=== PATIENT | female | born 1990 | race Caucasian/White ===

== ENCOUNTER 2018-04-14 10:31 | Inpatient (IN) | payer OTHER ==
[2018-04-14] MEDS ORDERED: Lidocaine 1% 50 ML MDV INJECT PRN (11:09)
[2018-04-14] MEDS ORDERED: Nalbuphine 20 MG/ML 1 ML Syringe IVPUSH PRN (11:09)
[2018-04-14] MEDS ORDERED: Sodium Chloride 0.9% 10 ML Syringe FLUSH PRN (11:09)
[2018-04-14] MEDS ORDERED: Oxytocin/Lactated Ringers 10 UNIT/1,000 ML BAG IV SCH ×2 (11:15)
[2018-04-14] MEDS: Lactated Ringers 1,000 ML IV SCH ×4 (11:25→21:42)
--- NOTE | 2018-04-14 11:47 | PCM.LDHP ---
L&D History of Present Illness - General Date of Service: 04/14/18 Admit Problem/Dx: Patient Status Order with Admit Dx/Problem 04/14/18 11:09 Patient Status [ADT] Routine Admission Diagnosis/Problem Admission Diagnosis/Problem Source of Information: Patient History Limitations: Reports: No Limitations - History of Present Illness Introduction:: Patient is a 27 y/o at 38 3/7 wks who is on L&D for IOL for gestational HTN. Has had 2 mild range BP's in clinic today. Had one prior elevated in clinic about 2 weeks ago. Doing well. No signs/symptoms of preeclampsia. 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 Para: 0 - Past Surgical History HEENT Surgical History: Reports: Oral Surgery Social & Family History - Family History Family Medical History: Noncontributory Cardiac: Reports: Hypertension Endocrine/Metabolic: Reports: Diabetes, type II Oncologic: Reports: Breast - Tobacco Use Smoking Status *Q: Never Smoker Second Hand Smoke Exposure: No - Alcohol Use Alcohol Use History: No - Recreational Drug Use Recreational Drug Use: No H&P Review of Systems - Review of Systems: Review Of Systems: See Below General: Reports: No Symptoms Pulmonary: Reports: No Symptoms Cardiovascular: Reports: No Symptoms Gastrointestinal: Reports: No Symptoms Genitourinary: Reports: No Symptoms Musculoskeletal: Reports: No Symptoms Psychiatric: Reports: No Symptoms Neurological: Reports: No Symptoms L&D Exam - Exam Exam: See Below - Vital Signs Vital Signs: Last Vital Signs Temp 37.0 C 04/14/18 11:09 Pulse 100 04/14/18 11:01 Resp 16 04/14/18 11:09 BP 138/93 H 04/14/18 11:09 Pulse Ox Weight: 94.982 kg - OB Specific Contraction Frequency (min): 3-4 Contraction Intensity: Mild Movement: Active Heart Tones: Present Heart Tones per Min: 140 Heart Rate (FHR) Variability: Moderate (6-25 bmp) Presentation: Vertex - Poe Score Poe Score Cervix Position: Posterior Poe Score Consistency: Soft Poe Score Effacement: 51-70% Poe Score Dilation: 1-2 cm Poe Score Infant's Station: -2 Poe Score Total: 6 - Exam General: Alert, Oriented, Cooperative Lungs: Clear to Auscultation, Normal Respiratory Effort Cardiovascular: Regular Rate, Regular Rhythm GI/Abdominal Exam: Soft, Non-Tender Genitourinary: Normal external exam Extremities: Normal Inspection Skin: Warm, Dry, Intact - Patient Data Result Diagrams: 04/14/18 11:41 04/14/18 11:53 - Problem List (1) 38 weeks gestation of SNOMED Code(s): 65712408 ICD Code: Z3A.38 - 38 WEEKS GESTATION OF Status: Acute Current Visit: Yes (2) Gestational hypertension SNOMED Code(s): 128246737, 111338546 ICD Code: O13.9 - GESTATIONAL HTN W/O SIGNIFICANT PROTEINURIA, UNSP TRIMESTER Status: Acute Current Visit: Yes Qualifiers: Trimester: third trimester Qualified Code(s): O13.3 - Gestational [ -induced] hypertension without significant proteinuria, third trimester Problem List Initiated/Reviewed/Updated: Yes Orders Last 24hrs: Active Orders 24 hr Category Date Time Status Patient Status [ADT] Routine ADT 04/14/18 11:09 Active Activity as Tolerated [RC] PFP Care 04/14/18 11:09 Active Communication Order [RC] ASDIRECTED Care 04/14/18 11:09 Active Heart Tones [RC] ASDIRECTED Care 04/14/18 11:09 Active Notify Provider [RC] PFP Care 04/14/18 11:09 Active Notify Provider [RC] PRN Care 04/14/18 11:09 Active Peripheral IV Care [RC] Q2HR Care 04/14/18 11:09 Active Vital Signs [RC] PER UNIT ROUTINE Care 04/14/18 11:09 Active Regular Diet [DIET] Diet 04/14/18 Lunch Active CBC WITH AUTO DIFF [HEME] Routine Lab 04/14/18 11:41 Received RAPID PLASMA REAGIN,RPR [CHEM] Routine Lab 04/14/18 11:09 Ordered Lactated Ringers [Ringers, Lactated] 1,000 ml Med 04/14/18 11:15 Active IV ASDIRECTED Lidocaine 1% [Xylocaine 1%] Med 04/14/18 11:09 Active 50 ml INJECT ONETIME PRN Nalbuphine [Nubain] Med 04/14/18 11:09 Active 10 mg IVPUSH Q2H PRN Oxytocin/Lactated Ringers [Pitocin in LR 10 Units/1,000 Med 04/14/18 11:15 Active ML] 10 unit in 1,000 ml IV .CONTINUOUS Oxytocin/Lactated Ringers [Pitocin in LR 10 Units/1,000 Med 04/14/18 11:15 Active ML] 10 unit in 1,000 ml IV TITRATE Sodium Chloride 0.9% [Saline Flush] Med 04/14/18 11:09 Active 10 ml FLUSH ASDIRECTED PRN Electronic Heart Tones Ext w TOCO [WOMSER] Oth 04/14/18 11:09 Ordered Routine Electronic Heart Tones Internal [WOMSER] Per Unit Ot 04/14/18 11:09 Ordered Routine Peripheral IV Insertion Adult [OM.PC] Routine Ot 04/14/18 11:09 Ordered Resuscitation Status Routine Resus Stat 04/14/18 11:09 Ordered Medication Orders Lactated Ringer's (Ringers, Lactated) 1,000 mls @ 100 mls/hr IV ASDIRECTED AVE Oxytocin/Lactated Ringer's (Pitocin In Lr 10 Units/1,000 Ml) 10 unit in 1,000 mls @ 12 mls/hr IV TITRATE AVE; Protocol Oxytocin/Lactated Ringer's (Pitocin In Lr 10 Units/1,000 Ml) 10 unit in 1,000 mls @ 500 mls/hr IV .CONTINUOUS AVE Lidocaine HCl (Xylocaine 1%) 50 ml INJECT ONETIME PRN PRN Reason: Breakthrough Pain Nalbuphine HCl (Nubain) 10 mg IVPUSH Q2H PRN PRN Reason: pain Sodium Chloride (Saline Flush) 10 ml FLUSH ASDIRECTED PRN PRN Reason: Keep Vein Open Assessment/Plan Comment:: 27 y/o at 38 3/7 wks who presents for IOL for gestational HTN * Labs on admission * GBS negative, no need for antibiotics * Plan pitocin and fine bulb for IOL. AROM when able * Pain management per patient preference * Anticipate
--- NOTE | 2018-04-14 16:43 | PCM.PNLD ---
Labor Progress Note - VS & Meds Vital Signs: Last Vital Signs Temp 37.0 C 04/14/18 11:09 Pulse 107 H 04/14/18 14:19 Resp 16 04/14/18 11:09 BP 144/89 H 04/14/18 14:19 Pulse Ox Active Medications: Current Medications Lactated Ringer's (Ringers, Lactated) 1,000 mls @ 100 mls/hr IV ASDIRECTED AVE Last Admin: 04/14/18 11:25 Dose: 100 mls/hr Oxytocin/Lactated Ringer's (Pitocin In Lr 10 Units/1,000 Ml) 10 unit in 1,000 mls @ 12 mls/hr IV TITRATE AVE; Protocol Last Titration: 04/14/18 14:20 Dose: 10 munits/min, 60 mls/hr Oxytocin/Lactated Ringer's (Pitocin In Lr 10 Units/1,000 Ml) 10 unit in 1,000 mls @ 500 mls/hr IV .CONTINUOUS AVE Lidocaine HCl (Xylocaine 1%) 50 ml INJECT ONETIME PRN PRN Reason: Breakthrough Pain Nalbuphine HCl (Nubain) 10 mg IVPUSH Q2H PRN PRN Reason: pain Sodium Chloride (Saline Flush) 10 ml FLUSH ASDIRECTED PRN PRN Reason: Keep Vein Open - Uterine Contractions Uterine Monitoring Mode: External [place] Contraction Frequency (min): q3 Contraction Intensity: Mild Uterine Resting Tone: Soft - Monitoring Monitor Mode: External Ultrasound Heart Rate (FHR) Baseline: 135 Heart Rate (FHR) Variability: Moderate (6-25 bmp) Accelerations: Present, 15x15 Decelerations: None Strip Review: Category I - Vaginal Exam Dilation (cm): 4 Effacement (Percent): 75 Station: -2 Cervical Position: Posterior - Labor Progress (Free Text) Labor Progress: Doing well. Contractions mild. Pitocin at 12. AROM performed with release of clear fluid. Continue present management.
[2018-04-14] MEDS ORDERED: Ondansetron 4 MG/2 ML SDV IVPUSH PRN (17:56)
[2018-04-14] MEDS ORDERED: fentaNYL 100 MCG/2 ML SDV EPIDUR PRN (17:56)
[2018-04-14] MEDS ORDERED: diphenhydrAMINE 50 MG/ML SDV IVPUSH PRN (17:56)
[2018-04-14] MEDS ORDERED: ePHEDrine 50 MG/ML SDV IVPUSH PRN (17:56)
[2018-04-14] MEDS ORDERED: Bupivacaine/fentaNYL/NS 100 ML Bag EPIDUR SCH (18:00)
--- NOTE | 2018-04-14 18:33 | PCM.PREANE ---
Preanesthetic Assessment - Anesthesia/Transfusion/Family Hx Anesthesia History: Prior Anesthesia Without Reaction Transfusion History: No Prior Transfusion(s) - Review of Systems General: No Symptoms Pulmonary: No Symptoms Cardiovascular: No Symptoms Gastrointestinal: No Symptoms Neurological: No Symptoms Other: Reports: None - Physical Assessment Pulse: 107 Respiratory Rate: 16 Blood Pressure: 144/89 Vital Signs: Last Vital Signs Temp 37.0 C 04/14/18 11:09 Pulse 107 H 04/14/18 14:19 Resp 16 04/14/18 11:09 BP 144/89 H 04/14/18 14:19 Pulse Ox Height: 1.6 m Weight: 94.982 kg ASA Class: 2 Mental Status: Alert & Oriented x3 Dentition: Reports: Normal Dentition Thyro-Mental Finger Breadths: 3 Mouth Opening Finger Breadths: 3 ROM/Head Extension: Full Lungs: Clear to Auscultation, Normal Respiratory Effort Cardiovascular: Regular Rate, Regular Rhythm - Lab Values: Laboratory Last Values WBC 8.80 K/mm3 (3.98-10.04) 04/14/18 11:41 RBC 4.59 M/mm3 (3.98-5.22) 04/14/18 11:41 Hgb 13.9 gm/L (11.2-15.7) 04/14/18 11:41 Hct 40.5 % (34.1-44.9) 04/14/18 11:41 MCV 88.2 fl (79.4-94.8) 04/14/18 11:41 MCH 30.3 pg (25.6-32.2) 04/14/18 11:41 MCHC 34.3 g/dl (32.2-35.5) 04/14/18 11:41 RDW Std Deviation 41.9 fL (36.4-46.3) 04/14/18 11:41 Plt Count 254 K/mm3 (182-369) 04/14/18 11:41 MPV 11.4 fl (9.4-12.3) 04/14/18 11:41 Neut % (Auto) 76.2 % (34.0-71.1) H 04/14/18 11:41 Lymph % (Auto) 13.4 % (19.3-51.7) L 04/14/18 11:41 [place] % (Auto) 8.6 % (4.7-12.5) 04/14/18 11:41 Eos % (Auto) 0.5 (0.7-5.8) L 04/14/18 11:41 Baso % (Auto) 0.3 % (0.1-1.2) 04/14/18 11:41 Neut # (Auto) 6.70 K/mm3 (1.56-6.13) H 04/14/18 11:41 Lymph # (Auto) 1.18 K/mm3 (1.18-3.74) 04/14/18 11:41 [place] # (Auto) 0.76 K/mm3 (0.24-0.36) H 04/14/18 11:41 Eos # (Auto) 0.04 K/mm3 (0.04-0.36) 04/14/18 11:41 Baso # (Auto) 0.03 K/mm3 (0.01-0.08) 04/14/18 11:41 Creatinine 0.7 mg/dL (0.55-1.02) 04/14/18 11:53 Est Cr Clr Drug Dosing 100.74 mL/min 04/14/18 11:53 Estimated GFR (MDRD) > 60 mL/min (>60) 04/14/18 11:53 AST 20 U/L (15-37) 04/14/18 11:53 ALT 19 U/L (14-59) 04/14/18 11:53 Urine Color Yellow (Yellow) 04/14/18 12:45 Urine Appearance Clear (Clear) 04/14/18 12:45 Urine pH 7.0 (5.0-8.0) 04/14/18 12:45 Ur Specific [place] 1.015 (1.005-1.030) 04/14/18 12:45 Urine Protein Negative (Negative) 04/14/18 12:45 Urine Glucose (UA) Negative (Negative) 04/14/18 12:45 Urine Ketones Negative (Negative) 04/14/18 12:45 Urine Occult Blood Negative (Negative) 04/14/18 12:45 Urine Nitrite Negative (Negative) 04/14/18 12:45 Urine Bilirubin Negative (Negative) 04/14/18 12:45 Urine Urobilinogen 0.2 (0.2-1.0) 04/14/18 12:45 Ur Leukocyte Esterase Trace (Negative) H 04/14/18 12:45 RPR Non-reactive (NONREACTIVE) 04/14/18 11:09 - Allergies Allergies/Adverse Reactions: Allergies Allergy/AdvReac Type Severity Reaction Status Date / Time No Known Allergies Allergy Verified 04/14/18 10:58 - Acknowledgements Anesthesia Type Planned: Epidural Pt an Appropriate Candidate for the Planned Anesthesia: Yes Alternatives and Risks of Anesthesia Discussed w Pt/Guardian: Yes Pt/Guardian Understands and Agrees with Anesthesia Plan: Yes PreAnesthesia Questionnaire - Past Surgical History HEENT Surgical History: Reports: Oral Surgery - SUBSTANCE USE Smoking Status *Q: Never Smoker Second Hand Smoke Exposure: No Recreational Drug Use History: No - CURRENT (IN HOUSE) MEDS Current Meds: Current Medications Diphenhydramine HCl (Benadryl) 25 mg IVPUSH Q6H PRN PRN Reason: Pruritis Ephedrine Sulfate (Ephedrine Sulfate) 5 mg IVPUSH ASDIRECTED PRN PRN Reason: Hypotension Fentanyl (Sublimaze) 100 mcg EPIDUR ONETIME PRN PRN Reason: Pain Last Admin: 04/14/18 18:06 Dose: 100 mcg Fentanyl/Bupivacaine HCl (Fentanyl/Bupivacaine/Ns 2 Mcg-0.125% 100 Ml) [address] Last Admin: 04/14/18 18:06 Dose: 100 ml Lactated Ringer's (Ringers, Lactated) 1,000 mls @ 100 mls/hr IV ASDIRECTED AVE Last Admin: 04/14/18 18:22 Dose: 500 mls/hr Oxytocin/Lactated Ringer's (Pitocin In Lr 10 Units/1,000 Ml) 10 unit in 1,000 mls @ 12 mls/hr IV TITRATE AVE; Protocol Last Titration: 04/14/18 16:56 Dose: 10 munits/min, 60 mls/hr Oxytocin/Lactated Ringer's (Pitocin In Lr 10 Units/1,000 Ml) 10 unit in 1,000 mls @ 500 mls/hr IV .CONTINUOUS AVE Lidocaine HCl (Xylocaine 1%) 50 ml INJECT ONETIME PRN PRN Reason: Breakthrough Pain Nalbuphine HCl (Nubain) 10 mg IVPUSH Q2H PRN PRN Reason: pain Ondansetron HCl (Zofran) 4 mg IVPUSH ONETIME PRN PRN Reason: Nausea/Vomiting Sodium Chloride (Saline Flush) 10 ml FLUSH ASDIRECTED PRN PRN Reason: Keep Vein Open
[2018-04-14] MEDS ORDERED: Lidocaine 1.5% with EPINEPHrine 1:200,000 5 ML Amp ONE (22:00)
[2018-04-14] MEDS ORDERED: Bupivacaine 0.25% 10 ML SDV ONE (22:00)
[2018-04-14] MEDS ORDERED: Misoprostol 200 MCG Tab ONE ×2 (22:08→22:10)
[2018-04-14] MEDS ORDERED: Misoprostol 100 MCG Tab PO ONE (22:14)
--- NOTE | 2018-04-14 22:34 | PCM.DEL ---
L & D Note - General Info Date of Service: 04/14/18 - Delivery Note Labor: Induced by ARM, Induced by Oxytocin Cervical Ripening Method: Balloon Device Delivery Outcome: Livebirth Infant Delivery Method: Spontaneous Vaginal Delivery-Single Infant Delivery Mode: Spontaneous Presentation: Right Occiput Anterior (ORACIO) Nuchal Cord: None Anesthesia Type: Epidural Amniotic Fluid Description: Clear Episiotomy Type: None Laceration: 2nd Degree, Vaginal, Other (periclitoral) Suture type: Vicryl Suture size: 2-0 Placenta: Intact, Spontaneous Cord: 3 Vessels Estimated Blood Loss: 450 : Bulb Syringe, Stimulated, Warmed, [place] Used, Warmer Used Delivery Comments (Free Text/Narrative):: Patient found to be complete and began pushing. With maternal pushing effort head delivered from an ORACIO presentation. No nuchal cord present. With gentle downward traction the shoulders and body delivered. placed on maternal abdomen. Cord clamped and cut. Cord blood obtained. Placenta allowed time to separate and expelled intact. Inspection of the perineum showed a periclitoral tear and also a small, 2nd degree vaginal laceration. These were both repaired with running sutures of 2-0 vicryl - General Info Date of Service: 04/14/18 - Patient Data Vitals - Most Recent: Last Vital Signs Temp 37.0 C 04/14/18 11:09 Pulse 107 H 04/14/18 18:33 Resp 16 04/14/18 18:33 BP 144/89 H 04/14/18 18:33 Pulse Ox Weight - Most Recent: 94.982 kg I&O - Last 24 Hours: Intake & Output 04/14/18 04/14/18 04/14/18 06:59 14:59 22:59 Intake Total 380 Balance 380 Lab Results Last 24 Hours: Laboratory Results - last 24 hr 04/14/18 04/14/18 04/14/18 Range/Units 11:09 11:41 11:53 WBC 8.80 (3.98-10.04) K/mm3 RBC 4.59 (3.98-5.22) M/mm3 Hgb 13.9 (11.2-15.7) gm/L Hct 40.5 (34.1-44.9) % MCV 88.2 (79.4-94.8) fl MCH 30.3 (25.6-32.2) pg MCHC 34.3 (32.2-35.5) g/dl RDW Std Deviation 41.9 (36.4-46.3) fL Plt Count 254 (182-369) K/mm3 MPV 11.4 (9.4-12.3) fl Neut % (Auto) 76.2 H (34.0-71.1) % Lymph % (Auto) 13.4 L (19.3-51.7) % [place] % (Auto) 8.6 (4.7-12.5) % Eos % (Auto) 0.5 L (0.7-5.8) Baso % (Auto) 0.3 (0.1-1.2) % Neut # (Auto) 6.70 H (1.56-6.13) K/mm3 Lymph # (Auto) 1.18 (1.18-3.74) K/mm3 [place] # (Auto) 0.76 H (0.24-0.36) K/mm3 Eos # (Auto) 0.04 (0.04-0.36) K/mm3 Baso # (Auto) 0.03 (0.01-0.08) K/mm3 Creatinine 0.7 (0.55-1.02) mg/dL Est Cr Clr Drug Dosing 100.74 mL/min Estimated GFR (MDRD) > 60 (>60) mL/min AST 20 (15-37) U/L ALT 19 (14-59) U/L Urine Color (Yellow) Urine Appearance (Clear) Urine pH (5.0-8.0) Ur Specific [place] (1.005-1.030) Urine Protein (Negative) Urine Glucose (UA) (Negative) Urine Ketones (Negative) Urine Occult Blood (Negative) Urine Nitrite (Negative) Urine Bilirubin (Negative) Urine Urobilinogen (0.2-1.0) Ur Leukocyte Esterase (Negative) RPR Non-reactive (NONREACTIVE) 04/14/18 Range/Units 12:45 WBC (3.98-10.04) K/mm3 RBC (3.98-5.22) M/mm3 Hgb (11.2-15.7) gm/L Hct (34.1-44.9) % MCV (79.4-94.8) fl MCH (25.6-32.2) pg MCHC (32.2-35.5) g/dl RDW Std Deviation (36.4-46.3) fL Plt Count (182-369) K/mm3 MPV (9.4-12.3) fl Neut % (Auto) (34.0-71.1) % Lymph % (Auto) (19.3-51.7) % [place] % (Auto) (4.7-12.5) % Eos % (Auto) (0.7-5.8) Baso % (Auto) (0.1-1.2) % Neut # (Auto) (1.56-6.13) K/mm3 Lymph # (Auto) (1.18-3.74) K/mm3 [place] # (Auto) (0.24-0.36) K/mm3 Eos # (Auto) (0.04-0.36) K/mm3 Baso # (Auto) (0.01-0.08) K/mm3 Creatinine (0.55-1.02) mg/dL Est Cr Clr Drug Dosing mL/min Estimated GFR (MDRD) (>60) mL/min AST (15-37) U/L ALT (14-59) U/L Urine Color Yellow (Yellow) Urine Appearance Clear (Clear) Urine pH 7.0 (5.0-8.0) Ur Specific [place] 1.015 (1.005-1.030) Urine Protein Negative (Negative) Urine Glucose (UA) Negative (Negative) Urine Ketones Negative (Negative) Urine Occult Blood Negative (Negative) Urine Nitrite Negative (Negative) Urine Bilirubin Negative (Negative) Urine Urobilinogen 0.2 (0.2-1.0) Ur Leukocyte Esterase Trace H (Negative) RPR (NONREACTIVE) Med Orders - Current: Current Medications Diphenhydramine HCl (Benadryl) 25 mg IVPUSH Q6H PRN PRN Reason: Pruritis Ephedrine Sulfate (Ephedrine Sulfate) 5 mg IVPUSH ASDIRECTED PRN PRN Reason: Hypotension Fentanyl (Sublimaze) 100 mcg EPIDUR ONETIME PRN PRN Reason: Pain Last Admin: 04/14/18 18:06 Dose: 100 mcg Fentanyl/Bupivacaine HCl (Fentanyl/Bupivacaine/Ns 2 Mcg-0.125% 100 Ml) [address] Last Admin: 04/14/18 18:06 Dose: 100 ml Lactated Ringer's (Ringers, Lactated) 1,000 mls @ 100 mls/hr IV ASDIRECTED AVE Last Admin: 04/14/18 21:42 Dose: 125 mls/hr Oxytocin/Lactated Ringer's (Pitocin In Lr 10 Units/1,000 Ml) 10 unit in 1,000 mls @ 12 mls/hr IV TITRATE AVE; Protocol Last Titration: 04/14/18 19:30 Dose: 12 munits/min, 72 mls/hr Oxytocin/Lactated Ringer's (Pitocin In Lr 10 Units/1,000 Ml) 10 unit in 1,000 mls @ 500 mls/hr IV .CONTINUOUS AVE Lidocaine HCl (Xylocaine 1%) 50 ml INJECT ONETIME PRN PRN Reason: Breakthrough Pain Nalbuphine HCl (Nubain) 10 mg IVPUSH Q2H PRN PRN Reason: pain Ondansetron HCl (Zofran) 4 mg IVPUSH ONETIME PRN PRN Reason: Nausea/Vomiting Sodium Chloride (Saline Flush) 10 ml FLUSH ASDIRECTED PRN PRN Reason: Keep Vein Open Discontinued Medications Misoprostol (Cytotec) Confirm Administered Dose 200 mcg .ROUTE .STK-MED ONE Stop: 04/14/18 22:09 Last Admin: 04/14/18 22:09 Dose: 200 mcg Misoprostol (Cytotec) Confirm Administered Dose 400 mcg .ROUTE .STK-MED ONE Stop: 04/14/18 22:11 Last Admin: 04/14/18 22:09 Dose: 400 mcg Misoprostol (Cytotec) 600 mcg PO ONETIME ONE Stop: 04/14/18 22:15 Last Admin: 04/14/18 22:24 Dose: Not Given - Problem List & Annotations (1) 38 weeks gestation of SNOMED Code(s): 86531068 Code(s): Z3A.38 - 38 WEEKS GESTATION OF Status: Acute Current Visit: Yes (2) Gestational hypertension SNOMED Code(s): 821920957, 409096784 Code(s): O13.9 - GESTATIONAL HTN W/O SIGNIFICANT PROTEINURIA, UNSP TRIMESTER Status: Acute Current Visit: Yes Qualifiers: Trimester: third trimester Qualified Code(s): O13.3 - Gestational [ -induced] hypertension without significant proteinuria, third trimester (3) Vaginal delivery SNOMED Code(s): 447256510 Code(s): O80 - ENCOUNTER FOR FULL-TERM UNCOMPLICATED DELIVERY Status: Acute Current Visit: Yes - Problem List Review Problem List Initiated/Reviewed/Updated: Yes - My Orders Last 24 Hours: My Active Orders 04/14/18 11:09 Patient Status [ADT] Routine Activity as Tolerated [RC] PFP Communication Order [RC] ASDIRECTED Notify Provider [RC] PFP Notify Provider [RC] PRN Peripheral IV Care [RC] Q2HR Vital Signs [RC] PER UNIT ROUTINE Lidocaine 1% [Xylocaine 1%] 50 ml INJECT ONETIME PRN Nalbuphine [Nubain] 10 mg IVPUSH Q2H PRN Sodium Chloride 0.9% [Saline Flush] 10 ml FLUSH ASDIRECTED PRN Electronic Heart Tones Ext w TOCO [WOMSER] Routine Electronic Heart Tones Internal [WOMSER] Per Unit Routine Peripheral IV Insertion Adult [OM.PC] Routine Resuscitation Status Routine 04/14/18 11:15 Lactated Ringers [Ringers, Lactated] 1,000 ml IV ASDIRECTED Oxytocin/Lactated Ringers [Pitocin in LR 10 Units/1,000 ML] 10 unit in 1,000 ml IV .CONTINUOUS Oxytocin/Lactated Ringers [Pitocin in LR 10 Units/1,000 ML] 10 unit in 1,000 ml IV TITRATE 04/14/18 22:29 Patient Status Manage Transfer [TRANSFER] Routine 04/14/18 Lunch Regular Diet [DIET] - Assessment Assessment:: 27 y/o G1 now P1001 PPD#0 from at 38 3/7 wks - Plan Plan:: * Routine cares * Encourage breast feeding * Monitor BP's closely * Discharge home in 2 days
[2018-04-14] MEDS ORDERED: Acetaminophen 325 MG Tab PO PRN (22:55)
[2018-04-14] MEDS ORDERED: Benzocaine/Menthol 20%-0.5% Spray 56 GM Canister TOP PRN (22:55)
[2018-04-14] MEDS ORDERED: Witch Hazel Medicated Pads 100/Jar TOP PRN (22:55)
[2018-04-14] MEDS ORDERED: Lanolin 100% Cream 7 GM Tube TOP PRN (22:55)
[2018-04-14] MEDS: Ibuprofen 600 MG Tab PO PRN (23:46)
[2018-04-14] MEDS: Docusate Sodium 100 MG Cap PO PRN (23:46)
--- NOTE | 2018-04-15 07:27 | PCM.PNPP ---
- General Info Date of Service: 04/15/18 Functional Status: Reports: Pain Controlled, Tolerating Diet, Ambulating, Urinating - Review of Systems General: Reports: No Symptoms Pulmonary: Reports: No Symptoms Cardiovascular: Reports: No Symptoms Gastrointestinal: Reports: No Symptoms Genitourinary: Reports: No Symptoms Musculoskeletal: Reports: No Symptoms Neurological: Reports: No Symptoms - Patient Data Vital Signs - Most Recent: Last Vital Signs Temp 36.4 C 04/15/18 03:59 Pulse 92 04/15/18 03:59 Resp 14 04/15/18 03:59 BP 131/72 04/15/18 03:59 Pulse Ox 99 04/15/18 03:59 Weight - Most Recent: 94.982 kg Lab Results - Last 24 Hours: Laboratory Results - last 24 hr 04/14/18 04/14/18 04/14/18 Range/Units 11:09 11:41 11:53 WBC 8.80 (3.98-10.04) K/mm3 RBC 4.59 (3.98-5.22) M/mm3 Hgb 13.9 (11.2-15.7) gm/L Hct 40.5 (34.1-44.9) % MCV 88.2 (79.4-94.8) fl MCH 30.3 (25.6-32.2) pg MCHC 34.3 (32.2-35.5) g/dl RDW Std Deviation 41.9 (36.4-46.3) fL Plt Count 254 (182-369) K/mm3 MPV 11.4 (9.4-12.3) fl Neut % (Auto) 76.2 H (34.0-71.1) % Lymph % (Auto) 13.4 L (19.3-51.7) % [place] % (Auto) 8.6 (4.7-12.5) % Eos % (Auto) 0.5 L (0.7-5.8) Baso % (Auto) 0.3 (0.1-1.2) % Neut # (Auto) 6.70 H (1.56-6.13) K/mm3 Lymph # (Auto) 1.18 (1.18-3.74) K/mm3 [place] # (Auto) 0.76 H (0.24-0.36) K/mm3 Eos # (Auto) 0.04 (0.04-0.36) K/mm3 Baso # (Auto) 0.03 (0.01-0.08) K/mm3 Creatinine 0.7 (0.55-1.02) mg/dL Est Cr Clr Drug Dosing 100.74 mL/min Estimated GFR (MDRD) > 60 (>60) mL/min AST 20 (15-37) U/L ALT 19 (14-59) U/L Urine Color (Yellow) Urine Appearance (Clear) Urine pH (5.0-8.0) Ur Specific [place] (1.005-1.030) Urine Protein (Negative) Urine Glucose (UA) (Negative) Urine Ketones (Negative) Urine Occult Blood (Negative) Urine Nitrite (Negative) Urine Bilirubin (Negative) Urine Urobilinogen (0.2-1.0) Ur Leukocyte Esterase (Negative) RPR Non-reactive (NONREACTIVE) 04/14/18 Range/Units 12:45 WBC (3.98-10.04) K/mm3 RBC (3.98-5.22) M/mm3 Hgb (11.2-15.7) gm/L Hct (34.1-44.9) % MCV (79.4-94.8) fl MCH (25.6-32.2) pg MCHC (32.2-35.5) g/dl RDW Std Deviation (36.4-46.3) fL Plt Count (182-369) K/mm3 MPV (9.4-12.3) fl Neut % (Auto) (34.0-71.1) % Lymph % (Auto) (19.3-51.7) % [place] % (Auto) (4.7-12.5) % Eos % (Auto) (0.7-5.8) Baso % (Auto) (0.1-1.2) % Neut # (Auto) (1.56-6.13) K/mm3 Lymph # (Auto) (1.18-3.74) K/mm3 [place] # (Auto) (0.24-0.36) K/mm3 Eos # (Auto) (0.04-0.36) K/mm3 Baso # (Auto) (0.01-0.08) K/mm3 Creatinine (0.55-1.02) mg/dL Est Cr Clr Drug Dosing mL/min Estimated GFR (MDRD) (>60) mL/min AST (15-37) U/L ALT (14-59) U/L Urine Color Yellow (Yellow) Urine Appearance Clear (Clear) Urine pH 7.0 (5.0-8.0) Ur Specific Malcolm 1.015 (1.005-1.030) Urine Protein Negative (Negative) Urine Glucose (UA) Negative (Negative) Urine Ketones Negative (Negative) Urine Occult Blood Negative (Negative) Urine Nitrite Negative (Negative) Urine Bilirubin Negative (Negative) Urine Urobilinogen 0.2 (0.2-1.0) Ur Leukocyte Esterase Trace H (Negative) RPR (NONREACTIVE) Med Orders - Current: Current Medications Acetaminophen (Tylenol) 650 mg PO Q4H PRN PRN Reason: mild pain or fever Benzocaine/Menthol (Dermoplast Pain Relief [place]) 0 gm TOP ASDIRECTED PRN PRN Reason: Perineal Comfort Measure Last Admin: 04/14/18 23:46 Dose: 1 can Docusate Sodium (Colace) 100 mg PO BID PRN PRN Reason: Constipation Last Admin: 04/14/18 23:46 Dose: 100 mg Emollient Ointment (Lansinoh Hpa) 0 gm TOP ASDIRECTED PRN PRN Reason: Sore Nipples Last Admin: 04/14/18 23:45 Dose: 1 tube Ibuprofen (Motrin) 600 mg PO Q6H PRN PRN Reason: Mild pain or fever Last Admin: 04/14/18 23:46 Dose: 600 mg Witch Ana Lilia (Tucks) 1 pad TOP ASDIRECTED PRN PRN Reason: Hemorrhoid pain Last Admin: 04/14/18 23:46 Dose: 1 container Discontinued Medications Diphenhydramine HCl (Benadryl) 25 mg IVPUSH Q6H PRN PRN Reason: Pruritis Ephedrine Sulfate (Ephedrine Sulfate) 5 mg IVPUSH ASDIRECTED PRN PRN Reason: Hypotension Fentanyl (Sublimaze) 100 mcg EPIDUR ONETIME PRN PRN Reason: Pain Last Admin: 04/14/18 18:06 Dose: 100 mcg Fentanyl/Bupivacaine HCl (Fentanyl/Bupivacaine/Ns 2 Mcg-0.125% 100 Ml) [address] Last Admin: 04/14/18 18:06 Dose: 100 ml Lactated Ringer's (Ringers, Lactated) 1,000 mls @ 100 mls/hr IV ASDIRECTED AVE Last Admin: 04/14/18 21:42 Dose: 125 mls/hr Oxytocin/Lactated Ringer's (Pitocin In Lr 10 Units/1,000 Ml) 10 unit in 1,000 mls @ 12 mls/hr IV TITRATE AVE; Protocol Last Titration: 04/14/18 22:03 Dose: 999 mls/hr Oxytocin/Lactated Ringer's (Pitocin In Lr 10 Units/1,000 Ml) 10 unit in 1,000 mls @ 500 mls/hr IV .CONTINUOUS AVE Last Admin: 04/14/18 22:31 Dose: 999 mls/hr Lidocaine HCl (Xylocaine 1%) 50 ml INJECT ONETIME PRN PRN Reason: Breakthrough Pain Misoprostol (Cytotec) Confirm Administered Dose 200 mcg .ROUTE .STK-MED ONE Stop: 04/14/18 22:09 Last Admin: 04/14/18 22:09 Dose: 200 mcg Misoprostol (Cytotec) Confirm Administered Dose 400 mcg .ROUTE .STK-MED ONE Stop: 04/14/18 22:11 Last Admin: 04/14/18 22:09 Dose: 400 mcg Misoprostol (Cytotec) 600 mcg PO ONETIME ONE Stop: 04/14/18 22:15 Last Admin: 04/14/18 22:24 Dose: Not Given Nalbuphine HCl (Nubain) 10 mg IVPUSH Q2H PRN PRN Reason: pain Ondansetron HCl (Zofran) 4 mg IVPUSH ONETIME PRN PRN Reason: Nausea/Vomiting Sodium Chloride (Saline Flush) 10 ml FLUSH ASDIRECTED PRN PRN Reason: Keep Vein Open - Infant Interaction Infant Disposition, : in Room with Family Infant Interaction: Holding Feeding: Attempted ; Nursed Fair/Poor Support Person: - Recovery Exam Fundal Tone: Firm Fundal Level: 2 Fingerbreadths Below Umbilicus Fundal Placement: Midline Lochia Amount: Small Lochia Color: Rubra/Red Perineum Description: Other (see below) Other Perinuem Description: 2nd degree laceration with repair Episiotomy/Laceration: Approximated Bladder Status: Voiding Urinary Elimination: Voided - Exam General: Alert, Oriented, Cooperative GI/Abdominal Exam: Soft, Non-Tender Extremities: Normal Inspection Skin: Warm, Dry, Intact - Problem List & Annotations (1) 38 weeks gestation of SNOMED Code(s): 90281099 Code(s): Z3A.38 - 38 WEEKS GESTATION OF Status: Acute Current Visit: Yes (2) Gestational hypertension SNOMED Code(s): 288241804, 732444358 Code(s): O13.9 - GESTATIONAL HTN W/O SIGNIFICANT PROTEINURIA, UNSP TRIMESTER Status: Acute Current Visit: Yes Qualifiers: Trimester: third trimester Qualified Code(s): O13.3 - Gestational [ -induced] hypertension without significant proteinuria, third trimester (3) Vaginal delivery SNOMED Code(s): 442203250 Code(s): O80 - ENCOUNTER FOR FULL-TERM UNCOMPLICATED DELIVERY Status: Acute Current Visit: Yes - Problem List Review Problem List Initiated/Reviewed/Updated: Yes - My Orders Last 24 Hours: My Active Orders 04/15/18 22:55 Heat Therapy [OM.PC] PRN 04/14/18 11:09 Resuscitation Status Routine 04/14/18 22:55 Activity as Tolerated [RC] PER UNIT ROUTINE Vital Signs [RC] 03,09,15,21 Acetaminophen [Tylenol] 650 mg PO Q4H PRN Benzocaine/Menthol [Dermoplast Pain Relief [place]] See Dose Instructions TOP ASDIRECTED PRN Docusate Sodium [Colace] 100 mg PO BID PRN Ibuprofen [Motrin] 600 mg PO Q6H PRN Lanolin [Lansinoh HPA] See Dose Instructions TOP ASDIRECTED PRN Witch Ana Lilia [Tucks] 1 pad TOP ASDIRECTED PRN Assess Lochia [WOMSER] Per Unit Routine Assess Uterine Involution [WOMSER] Per Unit Routine Breast Pump [WOMSER] Per Unit Routine Heat Therapy [OM.PC] PRN Ice Therapy [OM.PC] Per Unit Routine Perineal Care [OM.PC] Per Unit Routine Peripheral IV Discontinue [OM.PC] Routine Sitz Bath [OM.PC] Per Unit Routine 04/14/18 Breakfast Regular Diet [DIET] - Assessment Assessment:: 27 y/o G1 now P1001 PPD#1 from at 38 3/7 wks - Plan Plan:: * Routine cares * Encourage breast feeding * Monitor BP's closely. Have been normal to low mild range * Discharge home tomorrow
[2018-04-15] MEDS: Ibuprofen 600 MG Tab PO PRN (08:00)
[2018-04-15] MEDS: Docusate Sodium 100 MG Cap PO PRN (19:19)
--- NOTE | 2018-04-16 07:06 | PCM.PNPP ---
- General Info Date of Service: 04/16/18 Functional Status: Reports: Pain Controlled, Tolerating Diet, Ambulating, Urinating - Review of Systems General: Reports: No Symptoms Pulmonary: Reports: No Symptoms Cardiovascular: Reports: No Symptoms Gastrointestinal: Reports: No Symptoms Genitourinary: Reports: No Symptoms Musculoskeletal: Reports: No Symptoms Neurological: Reports: No Symptoms - Patient Data Vital Signs - Most Recent: Last Vital Signs Temp 36.6 C 04/16/18 01:52 Pulse 86 04/16/18 01:52 Resp 16 04/16/18 01:52 BP 141/77 H 04/16/18 03:52 Pulse Ox 100 04/16/18 01:52 Weight - Most Recent: 94.982 kg I&O - Last 24 Hours: Intake & Output 04/15/18 04/16/18 04/16/18 22:59 06:59 14:59 Intake Total 640 Balance 640 Med Orders - Current: Current Medications Acetaminophen (Tylenol) 650 mg PO Q4H PRN PRN Reason: mild pain or fever Benzocaine/Menthol (Dermoplast Pain Relief [place]) 0 gm TOP ASDIRECTED PRN PRN Reason: Perineal Comfort Measure Last Admin: 04/14/18 23:46 Dose: 1 can Docusate Sodium (Colace) 100 mg PO BID PRN PRN Reason: Constipation Last Admin: 04/15/18 19:19 Dose: 100 mg Emollient Ointment (Lansinoh Hpa) 0 gm TOP ASDIRECTED PRN PRN Reason: Sore Nipples Last Admin: 04/14/18 23:45 Dose: 1 tube Ibuprofen (Motrin) 600 mg PO Q6H PRN PRN Reason: Mild pain or fever Last Admin: 04/15/18 08:00 Dose: 600 mg Witch Ana Lilia (Tucks) 1 pad TOP ASDIRECTED PRN PRN Reason: Hemorrhoid pain Last Admin: 04/14/18 23:46 Dose: 1 container Discontinued Medications Diphenhydramine HCl (Benadryl) 25 mg IVPUSH Q6H PRN PRN Reason: Pruritis Ephedrine Sulfate (Ephedrine Sulfate) 5 mg IVPUSH ASDIRECTED PRN PRN Reason: Hypotension Fentanyl (Sublimaze) 100 mcg EPIDUR ONETIME PRN PRN Reason: Pain Last Admin: 04/14/18 18:06 Dose: 100 mcg Fentanyl/Bupivacaine HCl (Fentanyl/Bupivacaine/Ns 2 Mcg-0.125% 100 Ml) [address] Last Admin: 04/14/18 18:06 Dose: 100 ml Lactated Ringer's (Ringers, Lactated) 1,000 mls @ 100 mls/hr IV ASDIRECTED AVE Last Admin: 04/14/18 21:42 Dose: 125 mls/hr Oxytocin/Lactated Ringer's (Pitocin In Lr 10 Units/1,000 Ml) 10 unit in 1,000 mls @ 12 mls/hr IV TITRATE AVE; Protocol Last Titration: 04/14/18 22:03 Dose: 999 mls/hr Oxytocin/Lactated Ringer's (Pitocin In Lr 10 Units/1,000 Ml) 10 unit in 1,000 mls @ 500 mls/hr IV .CONTINUOUS AVE Last Admin: 04/14/18 22:31 Dose: 999 mls/hr Lidocaine HCl (Xylocaine 1%) 50 ml INJECT ONETIME PRN PRN Reason: Breakthrough Pain Misoprostol (Cytotec) Confirm Administered Dose 200 mcg .ROUTE .STK-MED ONE Stop: 04/14/18 22:09 Last Admin: 04/14/18 22:09 Dose: 200 mcg Misoprostol (Cytotec) Confirm Administered Dose 400 mcg .ROUTE .STK-MED ONE Stop: 04/14/18 22:11 Last Admin: 04/14/18 22:09 Dose: 400 mcg Misoprostol (Cytotec) 600 mcg PO ONETIME ONE Stop: 04/14/18 22:15 Last Admin: 04/14/18 22:24 Dose: Not Given Nalbuphine HCl (Nubain) 10 mg IVPUSH Q2H PRN PRN Reason: pain Ondansetron HCl (Zofran) 4 mg IVPUSH ONETIME PRN PRN Reason: Nausea/Vomiting Sodium Chloride (Saline Flush) 10 ml FLUSH ASDIRECTED PRN PRN Reason: Keep Vein Open - Interaction Disposition, : in Room with Family Infant Interaction: Holding Infant Feeding: Attempted ; Nursed Fair/Poor, Bottle Fed Infant Support Person: - Recovery Exam Fundal Tone: Firm Fundal Level: 1 Fingerbreadths Below Umbilicus Fundal Placement: Midline Lochia Amount: Small Lochia Color: Rubra/Red Perineum Description: Other (see below) Other Perinuem Description: 2nd degree lac with repair Episiotomy/Laceration: Approximated Bladder Status: Voiding Urinary Elimination: Voided - Exam General: Alert, Oriented, Cooperative GI/Abdominal Exam: Soft, Non-Tender Extremities: Normal Inspection Skin: Warm, Dry, Intact - Problem List & Annotations (1) 38 weeks gestation of SNOMED Code(s): 28203916 Code(s): Z3A.38 - 38 WEEKS GESTATION OF Status: Acute Current Visit: Yes (2) Gestational hypertension SNOMED Code(s): 979747313, 831111354 Code(s): O13.9 - GESTATIONAL HTN W/O SIGNIFICANT PROTEINURIA, UNSP TRIMESTER Status: Acute Current Visit: Yes Qualifiers: Trimester: third trimester Qualified Code(s): O13.3 - Gestational [ -induced] hypertension without significant proteinuria, third trimester (3) Vaginal delivery SNOMED Code(s): 152302854 Code(s): O80 - ENCOUNTER FOR FULL-TERM UNCOMPLICATED DELIVERY Status: Acute Current Visit: Yes - Problem List Review Problem List Initiated/Reviewed/Updated: Yes - My Orders Last 24 Hours: My Active Orders 04/15/18 22:55 Heat Therapy [OM.PC] PRN - Assessment Assessment:: 27 y/o G1 now P1001 PPD#2 from at 38 3/7 wks - Plan Plan:: * Routine cares * BP's are normal to mild range. Will follow up in 1 week in office for BP check * Breast feeing and supplementing. * Discharge home today
--- NOTE | 2018-04-16 07:06 | PCM.DCSUM1 ---
Discharge Summary - Discharge Data Discharge Date: 04/16/18 Discharge Disposition: Home, Self-Care 01 Condition: Good - Discharge Diagnosis/Problem(s) (1) 38 weeks gestation of SNOMED Code(s): 57034340 ICD Code: Z3A.38 - 38 WEEKS GESTATION OF Status: Acute Current Visit: Yes (2) Gestational hypertension SNOMED Code(s): 925216393, 629453641 ICD Code: O13.9 - GESTATIONAL HTN W/O SIGNIFICANT PROTEINURIA, UNSP TRIMESTER Status: Acute Current Visit: Yes Qualifiers: Trimester: third trimester Qualified Code(s): O13.3 - Gestational [ -induced] hypertension without significant proteinuria, third trimester (3) Vaginal delivery SNOMED Code(s): 022766238 ICD Code: O80 - ENCOUNTER FOR FULL-TERM UNCOMPLICATED DELIVERY Status: Acute Current Visit: Yes - Patient Summary/Data Complications: None Consults: None Recommended Follow-up Testing/Procedures: Follow up in 1 week for BP check and in 5-6 weeks for check Hospital Course: 27 y/o presented at 38 3/7 wks for IOL due to findings of gestational HTN. Induction done with pitocin, fine bulb, and eventual AROM. She progressed well to complete dilation and underwent an uncomplicated . See delivery note. she did well and was discharged home on PPD#2 - Patient Instructions Diet: Regular Diet as Tolerated Activity: As Tolerated Activity, Other: Pelvic Rest for 6 weeks Driving: May Drive Today Showering/Bathing: May Shower Notify Provider of: Fever, Increased Pain, Swelling and Redness, Drainage, Nausea and/or Vomiting - Discharge Plan *PRESCRIPTION DRUG MONITORING PROGRAM REVIEWED*: Not Applicable *COPY OF PRESCRIPTION DRUG MONITORING REPORT IN PATIENT HOLA: Not Applicable Home Medications: Home Meds Docusate Sodium [Colace] 100 mg PO BID PRN cap 04/15/18 [Rx] Ibuprofen [Motrin] 600 mg PO Q6H PRN tablet 04/15/18 [Rx] Patient Handouts: Home Care Instructions for Mom Referrals: Mulu Healy MD [Primary Care Provider] - (2 weeks for BP check 5-6 weeks for check ) - Discharge Summary/Plan Comment DC Time >30 min.: No - Patient Data Vitals - Most Recent: Last Vital Signs Temp 36.6 C 04/16/18 01:52 Pulse 86 04/16/18 01:52 Resp 16 04/16/18 01:52 BP 141/77 H 04/16/18 03:52 Pulse Ox 100 04/16/18 01:52 Weight - Most Recent: 94.982 kg I&O - Last 24 hours: Intake & Output 04/15/18 04/16/18 04/16/18 22:59 06:59 14:59 Intake Total 640 Balance 640 Med Orders - Current: Current Medications Acetaminophen (Tylenol) 650 mg PO Q4H PRN PRN Reason: mild pain or fever Benzocaine/Menthol (Dermoplast Pain Relief [place]) 0 gm TOP ASDIRECTED PRN PRN Reason: Perineal Comfort Measure Last Admin: 04/14/18 23:46 Dose: 1 can Docusate Sodium (Colace) 100 mg PO BID PRN PRN Reason: Constipation Last Admin: 04/15/18 19:19 Dose: 100 mg Emollient Ointment (Lansinoh Hpa) 0 gm TOP ASDIRECTED PRN PRN Reason: Sore Nipples Last Admin: 04/14/18 23:45 Dose: 1 tube Ibuprofen (Motrin) 600 mg PO Q6H PRN PRN Reason: Mild pain or fever Last Admin: 04/15/18 08:00 Dose: 600 mg Witch Ana Lilia (Tucks) 1 pad TOP ASDIRECTED PRN PRN Reason: Hemorrhoid pain Last Admin: 04/14/18 23:46 Dose: 1 container Discontinued Medications Diphenhydramine HCl (Benadryl) 25 mg IVPUSH Q6H PRN PRN Reason: Pruritis Ephedrine Sulfate (Ephedrine Sulfate) 5 mg IVPUSH ASDIRECTED PRN PRN Reason: Hypotension Fentanyl (Sublimaze) 100 mcg EPIDUR ONETIME PRN PRN Reason: Pain Last Admin: 04/14/18 18:06 Dose: 100 mcg Fentanyl/Bupivacaine HCl (Fentanyl/Bupivacaine/Ns 2 Mcg-0.125% 100 Ml) [address] Last Admin: 04/14/18 18:06 Dose: 100 ml Lactated Ringer's (Ringers, Lactated) 1,000 mls @ 100 mls/hr IV ASDIRECTED AVE Last Admin: 04/14/18 21:42 Dose: 125 mls/hr Oxytocin/Lactated Ringer's (Pitocin In Lr 10 Units/1,000 Ml) 10 unit in 1,000 mls @ 12 mls/hr IV TITRATE AVE; Protocol Last Titration: 04/14/18 22:03 Dose: 999 mls/hr Oxytocin/Lactated Ringer's (Pitocin In Lr 10 Units/1,000 Ml) 10 unit in 1,000 mls @ 500 mls/hr IV .CONTINUOUS AVE Last Admin: 04/14/18 22:31 Dose: 999 mls/hr Lidocaine HCl (Xylocaine 1%) 50 ml INJECT ONETIME PRN PRN Reason: Breakthrough Pain Misoprostol (Cytotec) Confirm Administered Dose 200 mcg .ROUTE .STK-MED ONE Stop: 04/14/18 22:09 Last Admin: 04/14/18 22:09 Dose: 200 mcg Misoprostol (Cytotec) Confirm Administered Dose 400 mcg .ROUTE .STK-MED ONE Stop: 04/14/18 22:11 Last Admin: 04/14/18 22:09 Dose: 400 mcg Misoprostol (Cytotec) 600 mcg PO ONETIME ONE Stop: 04/14/18 22:15 Last Admin: 04/14/18 22:24 Dose: Not Given Nalbuphine HCl (Nubain) 10 mg IVPUSH Q2H PRN PRN Reason: pain Ondansetron HCl (Zofran) 4 mg IVPUSH ONETIME PRN PRN Reason: Nausea/Vomiting Sodium Chloride (Saline Flush) 10 ml FLUSH ASDIRECTED PRN PRN Reason: Keep Vein Open
--- NOTE | 2018-04-16 10:42 | PCM48HPAN ---
Post Anesthesia Note - EVALUATION WITHIN 48HRS OF ANESTHETIC Vital Signs in Normal Range: Yes Patient Participated in Evaluation: Yes Respiratory Function Stable: Yes Airway Patent: Yes Cardiovascular Function Stable: Yes Hydration Status Stable: Yes Pain Control Satisfactory: Yes Nausea and Vomiting Control Satisfactory: Yes Mental Status Recovered: Yes - COMMENTS/OBSERVATIONS Free Text/Narrative:: Patient denied any anesthetic complications
== END 2018-04-16 11:38 | disposition home or self-care (01) | DRG 807 ==
LOC: JD.OB 10:31 → INTOOBSV 22:02 → OBSVTOIN 22:02 → JD.OB 22:03
PROVIDERS: ADMIT Obstetrics & Gynecology; ATTEND Obstetrics & Gynecology
PROC: 0U7C7ZZ Dilation of Cervix, Via Natural or Artificial Opening (ICD-10-PCS; principal; 2018-04-14)
PROC: 10907ZC Drainage of Amniotic Fluid, Therapeutic from Products of Conception, Via Natural or Artificial Opening (ICD-10-PCS; principal; 2018-04-14)
PROC: 0KQM0ZZ Repair Perineum Muscle, Open Approach (ICD-10-PCS; principal; 2018-04-14)
PROC: 3E033VJ Introduction of Other Hormone into Peripheral Vein, Percutaneous Approach (ICD-10-PCS; principal; 2018-04-14)
PROC: 6A550ZT Pheresis of Cord Blood Stem Cells, Single (ICD-10-PCS; principal; 2018-04-14)
PROC: 10E0XZZ Delivery of Products of Conception, External Approach (ICD-10-PCS; principal; 2018-04-14)
PROC: 3E0R3BZ Introduction of Anesthetic Agent into Spinal Canal, Percutaneous Approach (ICD-10-PCS; 2018-04-14)
PROC: 00HU33Z Insertion of Infusion Device into Spinal Canal, Percutaneous Approach (ICD-10-PCS; 2018-04-14)
DX: O13.4 Gestational [pregnancy-induced] hypertension without significant proteinuria, complicating childbirth (principal); Z37.0 Single live birth; O70.1 Second degree perineal laceration during delivery; Z3A.38 38 weeks gestation of pregnancy
CPT/HCPCS: 36415; 51702; 59025; 59409; 81003; 82565; 84450; 84460; 85025; 86592; A9270-GY; J2590; J3010; J3490; J7120

== ENCOUNTER 2020-07-06 06:50 | Inpatient (IN) | payer BC ==
[2020-07-06] MEDS ORDERED: Ondansetron 4 MG/2 ML SDV IVPUSH PRN (07:05)
[2020-07-06] MEDS ORDERED: Ampicillin 2 GM in Sodium Chloride 0.9% 100 ML IV ONE (07:05)
[2020-07-06] MEDS ORDERED: Sodium Chloride 0.9% 10 ML Syringe FLUSH PRN (07:05)
[2020-07-06] MEDS ORDERED: Nalbuphine 10 MG/1 ML Vial IVPUSH PRN (07:05)
--- NOTE | 2020-07-06 07:09 | PCM.LDHP ---
L&D History of Present Illness - General Date of Service: 07/06/20 Admit Problem/Dx: Patient Status Order with Admit Dx/Problem 07/06/20 07:06 Patient Status [ADT] Routine Admission Diagnosis/Problem Admission Diagnosis/Problem Gestational hypertension Source of Information: Patient History Limitations: Reports: No Limitations - History of Present Illness Introduction:: Patient is a 30 y/o at 37 4/7 wks presenting for IOL for what was gestational HTN diagnosed in clinic. Feeling well. 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 Para: 1 LMP (Approximate): - Past Surgical History HEENT Surgical History: Reports: Oral Surgery Social & Family History - Family History Family Medical History: No Pertinent Family History Cardiac: Reports: Hypertension Endocrine/Metabolic: Reports: Diabetes, type II Oncologic: Reports: Breast - Tobacco Use Tobacco Use Status *Q: Never Tobacco User - Alcohol Use Alcohol Use History: No - Recreational Drug Use Recreational Drug Use: No H&P Review of Systems - Review of Systems: Review Of Systems: See Below General: Reports: No Symptoms Pulmonary: Reports: No Symptoms Cardiovascular: Reports: No Symptoms Gastrointestinal: Reports: No Symptoms Genitourinary: Reports: No Symptoms Musculoskeletal: Reports: No Symptoms Neurological: Reports: No Symptoms L&D Exam - Exam Exam: See Below - OB Specific Contraction Intensity: Irritability Movement: Active Heart Tones: Present Heart Tones per Min: 145 Heart Rate (FHR) Variability: Moderate (6-25 bmp) Presentation: Vertex - Poe Score Poe Score Cervix Position: Posterior Poe Score Consistency: Soft Poe Score Effacement: 51-70% Poe Score Dilation: 1-2 cm Poe Score 's Station: -2 Poe Score Total: 6 - Exam General: Alert, Oriented, Cooperative Lungs: Clear to Auscultation, Normal Respiratory Effort Cardiovascular: Regular Rate GI/Abdominal Exam: Soft, Non-Tender Genitourinary: Normal external exam Extremities: Normal Inspection - Patient Data Result Diagrams: 07/06/20 07:22 07/06/20 07:22 - Problem List (1) 37 weeks gestation of SNOMED Code(s): 16692849 ICD Code: Z3A.37 - 37 WEEKS GESTATION OF Status: Acute Current Visit: Yes (2) Preeclampsia SNOMED Code(s): 668438338 ICD Code: O14.90 - UNSPECIFIED PRE-ECLAMPSIA, UNSPECIFIED TRIMESTER Status: Acute Current Visit: Yes Qualifiers: Trimester: third trimester Qualified Code(s): O14.93 - Unspecified pre- eclampsia, third trimester (3) GBS (group B Streptococcus carrier), +RV culture, currently SNOMED Code(s): 4973386744476, 065601123, 5326007142081 ICD Code: O99.820 - STREPTOCOCCUS B CARRIER STATE COMPLICATING Status: Acute Current Visit: Yes (4) COVID-19 affecting in third trimester SNOMED Code(s): 771210422, 926598829 ICD Code: O98.513 - OTHER VIRAL DISEASES COMPLICATING , THIRD TRIMESTER; U07.1 - COVID-19 Status: Acute Current Visit: Yes Problem List Initiated/Reviewed/Updated: Yes Orders Last 24hrs: Active Orders 24 hr Category Date Time Status Patient Status [ADT] Routine ADT 07/06/20 07:06 Ordered Communication Order [RC] ASDIRECTED Care 07/06/20 07:06 Ordered Communication Order [RC] ASDIRECTED Care 07/06/20 07:06 Ordered Communication Order [RC] ASDIRECTED Care 07/06/20 07:06 Ordered Heart Tones [RC] ASDIRECTED Care 07/06/20 07:06 Ordered Non Stress Test [RC] PER UNIT ROUTINE Care 07/06/20 07:06 Ordered Notify Provider [RC] ASDIRECTED Care 07/06/20 07:06 Ordered Notify Provider [RC] PRN Care 07/06/20 07:06 Ordered Peripheral IV Care [RC] . DIRECTED Care 07/06/20 07:06 Ordered Vaginal Exam [RC] ASDIRECTED Care 07/06/20 07:06 Ordered Vital Signs [RC] ASDIRECTED Care 07/06/20 07:06 Ordered Vital Signs [RC] PER UNIT ROUTINE Care 07/06/20 07:06 Ordered Regular Diet [DIET] Diet 07/06/20 Breakfast Ordered ALANINE AMINOTRANSFERASE,ALT [CHEM] Routine Lab 07/06/20 07:09 Ordered ASPARTATE AMNIOTRANSFERASE,AST [CHEM] Routine Lab 07/06/20 07:09 Ordered CBC W/O DIFF,HEMOGRAM [HEME] Routine Lab 07/06/20 07:05 Ordered CORONAVIRUS COVID-19 KANDI [MOLEC] Stat Lab 07/06/20 07:09 Ordered CREATININE W/GFR [CHEM] Routine Lab 07/06/20 07:09 Ordered PROTEIN/CREATININE RATIO,URINE [URCHEM] Routine Lab 07/06/20 07:09 Ordered RAPID PLASMA REAGIN,RPR [CHEM] Routine Lab 07/06/20 07:06 Ordered TYPE AND SCREEN [BBK] Routine Lab 07/06/20 07:05 Ordered Ampicillin 1 gm Med 07/06/20 07:15 Ordered Sodium Chloride 0.9% [Normal Saline] 100 ml IV Q4H Ampicillin 2 gm Med 07/06/20 07:05 Ordered Sodium Chloride 0.9% [Normal Saline] 100 ml IV ONETIME Lactated Ringers [Ringers, Lactated] 1,000 ml Med 07/06/20 07:15 Ordered IV ASDIRECTED Nalbuphine [Nubain] Med 07/06/20 07:05 Ordered 10 mg IVPUSH Q2H PRN Ondansetron [Zofran] Med 07/06/20 07:05 Ordered 4 mg IVPUSH Q4H PRN Oxytocin/Lactated Ringers [Pitocin in LR 10 Units/1,000 Med 07/06/20 07:15 Ordered ML] 10 unit in 1,000 ml IV .CONTINUOUS Oxytocin/Lactated Ringers [Pitocin in LR 10 Units/1,000 Med 07/06/20 07:15 Ordered ML] 10 unit in 1,000 ml IV TITRATE Sodium Chloride 0.9% [Saline Flush] Med 07/06/20 07:05 Ordered 10 ml FLUSH ASDIRECTED PRN Electronic Heart Tones Ext w TOCO [WOMSER] Oth 07/06/20 07:06 Ordered Routine Electronic Heart Tones Internal [WOMSER] Per Unit Oth 07/06/20 07:06 Ordered Routine PIH Panel [OM.PC] Routine Oth 07/06/20 07:05 Ordered Peripheral IV Insertion Adult [OM.PC] Routine Oth 07/06/20 07:06 Ordered Resuscitation Status Routine Resus Stat 07/06/20 07:05 Ordered Assessment/Plan Comment:: * Labs done and now show elevated urine protein to creatinine ratio c/w preeclampsia * Pitocin for IOL, AROM when able * Ampicillin for GBS positive status * Pain management per patient preference * COVID positive, precautions to be taken * Anticipate
[2020-07-06] MEDS ORDERED: Oxytocin/Lactated Ringers 10 UNIT/1,000 ML BAG IV SCH ×2 (07:15)
[2020-07-06] MEDS: Lactated Ringers 1,000 ML IV SCH ×2 (07:37→12:09)
--- NOTE | 2020-07-06 08:44 | PCM.PREANE ---
Preanesthetic Assessment - Procedure Proposed Procedure: Continuous labor epidural - Anesthesia/Transfusion/Family Hx Anesthesia History: Prior Anesthesia Without Reaction Transfusion History: No Prior Transfusion(s) - Review of Systems General: No Symptoms Pulmonary: No Symptoms Cardiovascular: No Symptoms Gastrointestinal: No Symptoms Neurological: No Symptoms Other: Reports: None - Physical Assessment Vital Signs: Last Vital Signs Temp 99.5 F 07/06/20 07:45 Pulse 97 07/06/20 07:45 Resp 16 07/06/20 07:45 BP 151/100 H 07/06/20 07:45 Pulse Ox 98 07/06/20 07:45 Height: 1.6 m Weight: 83.915 kg ASA Class: 2 Mental Status: Alert & Oriented x3 Airway Class: Mallampati = 3 Dentition: Reports: Normal Dentition Thyro-Mental Finger Breadths: 3 Mouth Opening Finger Breadths: 3 ROM/Head Extension: Full Lungs: Clear to Auscultation, Normal Respiratory Effort Cardiovascular: Regular Rate, Regular Rhythm - Lab Values: Laboratory Last Values WBC 7.37 K/mm3 (3.98-10.04) 07/06/20 07:22 RBC 4.39 M/mm3 (3.98-5.22) 07/06/20 07:22 Hgb 12.5 gm/dl (11.2-15.7) 07/06/20 07:22 Hct 38.5 % (34.1-44.9) 07/06/20 07:22 MCV 87.7 fl (79.4-94.8) 07/06/20 07:22 MCH 28.5 pg (25.6-32.2) 07/06/20 07:22 MCHC 32.5 g/dl (32.2-35.5) 07/06/20 07:22 RDW Std Deviation 42.0 fL (36.4-46.3) 07/06/20 07:22 Plt Count 249 K/mm3 (182-369) 07/06/20 07:22 MPV 12.4 fl (9.4-12.3) H 07/06/20 07:22 Creatinine 1.0 mg/dL (0.55-1.02) 07/06/20 07:22 Est Cr Clr Drug Dosing TNP 07/06/20 07:22 Estimated GFR (MDRD) > 60 mL/min (>60) 07/06/20 07:22 AST 16 U/L (15-37) 07/06/20 07:22 ALT 16 U/L (14-59) 07/06/20 07:22 - Allergies Allergies/Adverse Reactions: Allergies Allergy/AdvReac Type Severity Reaction Status Date / Time No Known Allergies Allergy Verified 04/14/18 10:58 - Acknowledgements Anesthesia Type Planned: Epidural Pt an Appropriate Candidate for the Planned Anesthesia: Yes Alternatives and Risks of Anesthesia Discussed w Pt/Guardian: Yes Pt/Guardian Understands and Agrees with Anesthesia Plan: Yes PreAnesthesia Questionnaire Cardiovascular History: Reports: Hypertension (Gestational) 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: - Past Surgical History HEENT Surgical History: Reports: Oral Surgery - HOME MEDS Home Medications: Home Meds Docusate Sodium [Colace] 100 mg PO BID PRN cap 04/15/18 [Rx] Ibuprofen [Motrin] 600 mg PO Q6H PRN tablet 04/15/18 [Rx] - CURRENT (IN HOUSE) MEDS Current Meds: Current Medications Oxytocin/Lactated Ringer's (Pitocin In Lr 10 Units/1,000 Ml) 10 unit in 1,000 mls @ 12 mls/hr IV TITRATE AVE; Protocol Last Titration: 07/06/20 08:25 Dose: 4 munits/min, 24 mls/hr Documented by: Ampicillin Sodium 1 gm/ Sodium (Chloride) 100 mls @ 200 mls/hr IV Q4H AVE Oxytocin/Lactated Ringer's (Pitocin In Lr 10 Units/1,000 Ml) 10 unit in 1,000 mls @ 500 mls/hr IV .CONTINUOUS AVE Lactated Ringer's (Ringers, Lactated) 1,000 mls @ 40 mls/hr IV ASDIRECTED AVE Last Admin: 07/06/20 07:37 Dose: 40 mls/hr Documented by: Nalbuphine HCl (Nalbuphine 10 Mg/1 Ml Vial) 10 mg IVPUSH Q2H PRN PRN Reason: Pain Ondansetron HCl (Ondansetron 4 Mg/2 Ml Sdv) 4 mg IVPUSH Q4H PRN PRN Reason: Nausea/Vomiting Sodium Chloride (Sodium Chloride 0.9% 10 Ml Syringe) 10 ml FLUSH ASDIRECTED PRN PRN Reason: Keep Vein Open Discontinued Medications Ampicillin Sodium 2 gm/ Sodium (Chloride) 100 mls @ 200 mls/hr IV ONETIME ONE Stop: 07/06/20 07:34 Last Admin: 07/06/20 07:41 Dose: 200 mls/hr Documented by:
[2020-07-06] MEDS ORDERED: ePHEDrine 50 MG/ML SDV IVPUSH PRN (08:45)
[2020-07-06] MEDS ORDERED: fentaNYL 100 MCG/2 ML SDV EPIDUR PRN (08:45)
[2020-07-06] MEDS ORDERED: diphenhydrAMINE 50 MG/ML SDV IVPUSH PRN (08:45)
[2020-07-06] MEDS ORDERED: Bupivacaine/fentaNYL/NS 100 ML Bag EPIDUR PRN (08:45)
[2020-07-06] MEDS: Ampicillin 1 GM in Sodium Chloride 0.9% 100 ML IV SCH ×2 (11:21→14:52)
--- NOTE | 2020-07-06 15:51 | PCM.DEL ---
L & D Note - General Info Date of Service: 07/06/20 - Delivery Note Labor: Induced by ARM, Induced by Oxytocin Delivery Outcome: Livebirth Infant Delivery Method: Spontaneous Vaginal Delivery-Single Infant Delivery Mode: Spontaneous Presentation: Right Occiput Anterior (ORACIO) Nuchal Cord: Present (x3) Anesthesia Type: Epidural Amniotic Fluid Description: Clear Episiotomy Type: None Laceration: 2nd Degree, Vaginal, Other (periurethral) Suture type: Vicryl Suture size: 3-0 Placenta: Intact, Spontaneous Cord: 3 Vessels Estimated Blood Loss: 100 Resuscitation Needed: Yes [place]: Suctioned, Bulb Syringe, Stimulated, Warmed, [place] Used Delivery Comments (Free Text/Narrative):: Patient found to be complete and began pushing. With maternal pushing effort head delivered from ORACIO presentation. Nuchal cord tight and so not reduced With gentle downward traction shoulders and body delivered. Nuchal x3 then reduced. Infant placed on maternal abdomen. Cord clamped and cut. Cord blood obtained. Placenta allowed time to separate and expelled intact. Periurethral tear noted repaired with interrupted 3-0 Vicryl . Small vaginal laceration also reapproximated with running 3-0 Vicryl - General Info Date of Service: 07/06/20 - Patient Data Vitals - Most Recent: Last Vital Signs Temp 37.5 C 07/06/20 07:45 Pulse 97 07/06/20 07:45 Resp 16 07/06/20 07:45 BP 151/100 H 07/06/20 07:45 Pulse Ox 98 07/06/20 07:45 Weight - Most Recent: 83.915 kg I&O - Last 24 Hours: Intake & Output 07/06/20 07/06/20 07/06/20 06:59 14:59 22:59 Intake Total 1200 180 Balance 1200 180 - Problem List & Annotations (1) 37 weeks gestation of SNOMED Code(s): 72323683 Code(s): Z3A.37 - 37 WEEKS GESTATION OF Status: Acute Current Visit: Yes (2) COVID-19 affecting in third trimester SNOMED Code(s): 624631945, 402917330 Code(s): O98.513 - OTHER VIRAL DISEASES COMPLICATING , THIRD TRIMESTER; U07.1 - COVID-19 Status: Acute Current Visit: Yes (3) GBS (group B Streptococcus carrier), +RV culture, currently SNOMED Code(s): 4170324834370, 154116429, 7935162538175 Code(s): O99.820 - STREPTOCOCCUS B CARRIER STATE COMPLICATING Status: Acute Current Visit: Yes (4) Preeclampsia SNOMED Code(s): 191973232 Code(s): O14.90 - UNSPECIFIED PRE-ECLAMPSIA, UNSPECIFIED TRIMESTER Status: Acute Current Visit: Yes Qualifiers: Trimester: third trimester Qualified Code(s): O14.93 - Unspecified pre- eclampsia, third trimester (5) Vaginal delivery SNOMED Code(s): 831372398 Code(s): O80 - ENCOUNTER FOR FULL-TERM UNCOMPLICATED DELIVERY Status: Acute Current Visit: No - Problem List Review Problem List Initiated/Reviewed/Updated: Yes - My Orders Last 24 Hours: My Active Orders 07/06/20 Breakfast Regular Diet [DIET] 07/06/20 07:05 Nalbuphine [Nubain] 10 mg IVPUSH Q2H PRN Ondansetron [Zofran] 4 mg IVPUSH Q4H PRN Sodium Chloride 0.9% [Saline Flush] 10 ml FLUSH ASDIRECTED PRN PIH Panel [OM.PC] Routine Resuscitation Status Routine 07/06/20 07:06 Patient Status [ADT] Routine Communication Order [RC] ASDIRECTED Communication Order [RC] ASDIRECTED Communication Order [RC] ASDIRECTED Heart Tones [RC] ASDIRECTED Non Stress Test [RC] PER UNIT ROUTINE Notify Provider [RC] ASDIRECTED Notify Provider [RC] PRN Peripheral IV Care [RC] . DIRECTED Vaginal Exam [RC] ASDIRECTED Vital Signs [RC] ASDIRECTED Vital Signs [RC] PER UNIT ROUTINE Electronic Heart Tones Ext w TOCO [WOMSER] Routine Electronic Heart Tones Internal [WOMSER] Per Unit Routine Peripheral IV Insertion Adult [OM.PC] Routine 07/06/20 07:15 Lactated Ringers [Ringers, Lactated] 1,000 ml IV ASDIRECTED Oxytocin/Lactated Ringers [Pitocin in LR 10 Units/1,000 ML] 10 unit in 1,000 ml IV .CONTINUOUS Oxytocin/Lactated Ringers [Pitocin in LR 10 Units/1,000 ML] 10 unit in 1,000 ml IV TITRATE 07/06/20 07:22 RAPID PLASMA REAGIN,RPR [CHEM] Routine 07/06/20 11:00 Ampicillin 1 gm Sodium Chloride 0.9% [Normal Saline] 100 ml IV Q4H - Assessment Assessment:: PPD#0 - Plan Plan:: * Routine cares * Breast feeding * Monitor BP's closely * Discharge in 1-2 days
[2020-07-06] MEDS ORDERED: Bupivacaine 0.25% 10 ML SDV ONE (16:00)
[2020-07-06] MEDS ORDERED: Acetaminophen 325 MG Tab PO PRN (16:36)
[2020-07-06] MEDS ORDERED: Docusate Sodium 100 MG Cap PO PRN (16:36)
[2020-07-06] MEDS ORDERED: Witch Hazel Medicated Pads 40/Jar TOP PRN (16:36)
[2020-07-06] MEDS ORDERED: Benzocaine/Menthol 20%-0.5% Spray 56 GM Canister TOP PRN (16:36)
[2020-07-06] MEDS: Ibuprofen 600 MG Tab PO PRN (20:25)
[2020-07-07] MEDS: Ibuprofen 600 MG Tab PO PRN ×3 (04:21→16:34)
--- NOTE | 2020-07-07 07:07 | PCM.PNPP ---
- General Info Date of Service: 07/07/20 Functional Status: Reports: Pain Controlled, Tolerating Diet, Ambulating, Urinating - Review of Systems General: Reports: No Symptoms Pulmonary: Reports: No Symptoms Cardiovascular: Reports: No Symptoms Gastrointestinal: Reports: No Symptoms Genitourinary: Reports: No Symptoms Musculoskeletal: Reports: No Symptoms - Patient Data Vital Signs - Most Recent: Last Vital Signs Temp 36.7 C 07/07/20 04:09 Pulse 92 07/07/20 04:09 Resp 14 07/07/20 04:09 BP 121/89 07/07/20 04:09 Pulse Ox 96 07/07/20 04:09 Weight - Most Recent: 83.915 kg I&O - Last 24 Hours: Intake & Output 07/06/20 07/07/20 07/07/20 22:59 06:59 14:59 Intake Total 180 Output Total 528 Balance -348 Lab Results - Last 24 Hours: Laboratory Results - last 24 hr 07/06/20 07/06/20 07/06/20 Range/Units 07:22 07:22 07:22 WBC 7.37 (3.98-10.04) K/mm3 RBC 4.39 (3.98-5.22) M/mm3 Hgb 12.5 (11.2-15.7) gm/dl Hct 38.5 (34.1-44.9) % MCV 87.7 (79.4-94.8) fl MCH 28.5 (25.6-32.2) pg MCHC 32.5 (32.2-35.5) g/dl RDW Std Deviation 42.0 (36.4-46.3) fL Plt Count 249 (182-369) K/mm3 MPV 12.4 H (9.4-12.3) fl Creatinine 1.0 (0.55-1.02) mg/dL Est Cr Clr Drug Dosing TNP Estimated GFR (MDRD) > 60 (>60) mL/min AST 16 (15-37) U/L ALT 16 (14-59) U/L Ur Random Creatinine (30.0-125.0) mg/dL U Random Total Protein (0.0-11.8) mg/dL Protein/Creatinin Ratio (0-149) mg/g SARS-CoV-2 RNA (KANDI) (NEGATIVE) Blood Type A POSITIVE Gel Antibody Screen Negative 07/06/20 07/06/20 Range/Units 08:05 10:45 WBC (3.98-10.04) K/mm3 RBC (3.98-5.22) M/mm3 Hgb (11.2-15.7) gm/dl Hct (34.1-44.9) % MCV (79.4-94.8) fl MCH (25.6-32.2) pg MCHC (32.2-35.5) g/dl RDW Std Deviation (36.4-46.3) fL Plt Count (182-369) K/mm3 MPV (9.4-12.3) fl Creatinine (0.55-1.02) mg/dL Est Cr Clr Drug Dosing Estimated GFR (MDRD) (>60) mL/min AST (15-37) U/L ALT (14-59) U/L Ur Random Creatinine 32.1 (30.0-125.0) mg/dL U Random Total Protein 11.8 (0.0-11.8) mg/dL Protein/Creatinin Ratio 367.6 H (0-149) mg/g SARS-CoV-2 RNA (KANDI) Positive H (NEGATIVE) Blood Type Gel Antibody Screen Med Orders - Current: Current Medications Acetaminophen (Acetaminophen 325 Mg Tab) 650 mg PO Q4H PRN PRN Reason: mild pain or fever Benzocaine/Menthol (Benzocaine/Menthol 20%-0.5% [place] 56 Gm Canister) 0 gm TOP ASDIRECTED PRN PRN Reason: Perineal Comfort Measure Last Admin: 07/06/20 17:36 Dose: 1 can Documented by: Docusate Sodium (Docusate Sodium 100 Mg Cap) 100 mg PO BID PRN PRN Reason: Constipation Ibuprofen (Ibuprofen 600 Mg Tab) 600 mg PO Q6H PRN PRN Reason: Mild pain or fever Last Admin: 07/07/20 04:21 Dose: 600 mg Documented by: Pee Sung (Pee Sung Medicated Pads 40/Jar) 1 pad TOP ASDIRECTED PRN PRN Reason: Perineal Comfort Measure Last Admin: 07/06/20 17:36 Dose: 1 tub Documented by: Discontinued Medications Diphenhydramine HCl (Diphenhydramine 50 Mg/Ml Sdv) 25 mg IVPUSH Q6H PRN PRN Reason: pruritis Ephedrine Sulfate (Ephedrine 50 Mg/Ml Sdv) 5 mg IVPUSH ASDIRECTED PRN PRN Reason: Hypotension Fentanyl (Fentanyl 100 Mcg/2 Ml Sdv) 100 mcg EPIDUR Q3H PRN PRN Reason: Pain Last Admin: 07/06/20 11:14 Dose: 100 mcg Documented by: Fentanyl/Bupivacaine HCl (Bupivacaine/Fentanyl/Ns 100 Ml Bag) 100 ml EPIDUR ASDIRECTED PRN PRN Reason: Pain Last Admin: 07/06/20 11:14 Dose: 100 ml Documented by: Oxytocin/Lactated Ringer's (Pitocin In Lr 10 Units/1,000 Ml) 10 unit in 1,000 mls @ 12 mls/hr IV TITRATE AVE; Protocol Last Titration: 07/06/20 10:45 Dose: 10 munits/min, 60 mls/hr Documented by: Ampicillin Sodium 2 gm/ Sodium (Chloride) 100 mls @ 200 mls/hr IV ONETIME ONE Stop: 07/06/20 07:34 Last Admin: 07/06/20 07:41 Dose: 200 mls/hr Documented by: Ampicillin Sodium 1 gm/ Sodium (Chloride) 100 mls @ 200 mls/hr IV Q4H AVE Last Admin: 07/06/20 14:52 Dose: 200 mls/hr Documented by: Oxytocin/Lactated Ringer's (Pitocin In Lr 10 Units/1,000 Ml) 10 unit in 1,000 mls @ 500 mls/hr IV .CONTINUOUS AVE Lactated Ringer's (Ringers, Lactated) 1,000 mls @ 40 mls/hr IV ASDIRECTED AVE Last Admin: 07/06/20 12:09 Dose: 40 mls/hr Documented by: Nalbuphine HCl (Nalbuphine 10 Mg/1 Ml Vial) 10 mg IVPUSH Q2H PRN PRN Reason: Pain Ondansetron HCl (Ondansetron 4 Mg/2 Ml Sdv) 4 mg IVPUSH Q4H PRN PRN Reason: Nausea/Vomiting Sodium Chloride (Sodium Chloride 0.9% 10 Ml Syringe) 10 ml FLUSH ASDIRECTED PRN PRN Reason: Keep Vein Open - Interaction Disposition, : [place] in Room with Family Interaction: Holding Feeding: Bottle Fed Support Person: - Recovery Exam Fundal Tone: Firm Fundal Level: 1 Fingerbreadths Below Umbilicus Fundal Placement: Midline Lochia Amount: Small Lochia Color: Rubra/Red Perineum Description: Other (see below) Episiotomy/Laceration: None Bladder Status: Voiding Urinary Elimination: Voided - Exam General: Alert, Oriented, Cooperative GI/Abdominal Exam: Soft, Non-Tender - Problem List & Annotations (1) 37 weeks gestation of SNOMED Code(s): 07246226 Code(s): Z3A.37 - 37 WEEKS GESTATION OF Status: Acute Current Visit: Yes (2) COVID-19 affecting in third trimester SNOMED Code(s): 742773400, 111346846 Code(s): O98.513 - OTHER VIRAL DISEASES COMPLICATING , THIRD TRIMESTER; U07.1 - COVID-19 Status: Acute Current Visit: Yes (3) GBS (group B Streptococcus carrier), +RV culture, currently SNOMED Code(s): 2241706634273, 806395590, 9577536578030 Code(s): O99.820 - STREPTOCOCCUS B CARRIER STATE COMPLICATING Status: Acute Current Visit: Yes (4) Preeclampsia SNOMED Code(s): 254152592 Code(s): O14.90 - UNSPECIFIED PRE-ECLAMPSIA, UNSPECIFIED TRIMESTER Status: Acute Current Visit: Yes Qualifiers: Trimester: third trimester Qualified Code(s): O14.93 - Unspecified pre- eclampsia, third trimester (5) Vaginal delivery SNOMED Code(s): 377591317 Code(s): O80 - ENCOUNTER FOR FULL-TERM UNCOMPLICATED DELIVERY Status: Acute Current Visit: No - Problem List Review Problem List Initiated/Reviewed/Updated: Yes - My Orders Last 24 Hours: My Active Orders 07/06/20 07:05 Resuscitation Status Routine 07/06/20 07:22 RAPID PLASMA REAGIN,RPR [CHEM] Routine 07/06/20 16:36 Acetaminophen [TylenoL] 650 mg PO Q4H PRN Benzocaine/Menthol [Dermoplast Pain Relief [place]] See Dose Instructions TOP ASDIRECTED PRN Docusate Sodium [Colace] 100 mg PO BID PRN Ibuprofen [Motrin] 600 mg PO Q6H PRN witch Shahriar [Tucks] 1 pad TOP ASDIRECTED PRN Heat Therapy [OM.PC] PRN 07/06/20 16:36 Activity as Tolerated [RC] PER UNIT ROUTINE Vital Signs [RC] ,,, Assess Lochia [WOMSER] Per Unit Routine Assess Uterine Involution [WOMSER] Per Unit Routine Breast Pump [WOMSER] Per Unit Routine Perineal Care [OM.PC] Per Unit Routine Peripheral IV Discontinue [OM.PC] Routine Sitz Bath [OM.PC] Per Unit Routine 07/06/20 Dinner Regular Diet [DIET] 07/07/20 16:36 Heat Therapy [OM.PC] PRN - Assessment Assessment:: PPD#1 - Plan Plan:: * Routine cares * Bottle feeding * Monitor BP's closely, have been mild range consistently * Discharge tomorrow
--- NOTE | 2020-07-08 08:19 | PCM.PNPP ---
- General Info Date of Service: 07/08/20 Functional Status: Reports: Pain Controlled, Tolerating Diet, Ambulating, Urinating - Review of Systems General: Reports: No Symptoms Pulmonary: Reports: No Symptoms Cardiovascular: Reports: No Symptoms Gastrointestinal: Reports: No Symptoms Genitourinary: Reports: No Symptoms Musculoskeletal: Reports: No Symptoms - Patient Data Vital Signs - Most Recent: Last Vital Signs Temp 36.7 C 07/08/20 03:02 Pulse 82 07/08/20 03:02 Resp 14 07/08/20 03:02 BP 138/93 H 07/08/20 03:02 Pulse Ox 98 07/08/20 03:02 Weight - Most Recent: 83.915 kg Lab Results - Last 24 Hours: Laboratory Results - last 24 hr 07/06/20 Range/Units 07:22 RPR Non-reactive (NONREACTIVE) Med Orders - Current: Current Medications Acetaminophen (Acetaminophen 325 Mg Tab) 650 mg PO Q4H PRN PRN Reason: mild pain or fever Benzocaine/Menthol (Benzocaine/Menthol 20%-0.5% [place] 56 Gm Canister) 0 gm TOP ASDIRECTED PRN PRN Reason: Perineal Comfort Measure Last Admin: 07/06/20 17:36 Dose: 1 can Documented by: Docusate Sodium (Docusate Sodium 100 Mg Cap) 100 mg PO BID PRN PRN Reason: Constipation Last Admin: 07/07/20 10:19 Dose: 100 mg Documented by: Ibuprofen (Ibuprofen 600 Mg Tab) 600 mg PO Q6H PRN PRN Reason: Mild pain or fever Last Admin: 07/07/20 16:34 Dose: 600 mg Documented by: Pee Sung (Pee Sung Medicated Pads 40/Jar) 1 pad TOP ASDIRECTED PRN PRN Reason: Perineal Comfort Measure Last Admin: 07/06/20 17:36 Dose: 1 tub Documented by: Discontinued Medications Bupivacaine HCl (Bupivacaine 0.25% 10 Ml Sdv) 10 ml .ROUTE .STK-MED ONE Stop: 07/06/20 16:01 Diphenhydramine HCl (Diphenhydramine 50 Mg/Ml Sdv) 25 mg IVPUSH Q6H PRN PRN Reason: pruritis Ephedrine Sulfate (Ephedrine 50 Mg/Ml Sdv) 5 mg IVPUSH ASDIRECTED PRN PRN Reason: Hypotension Fentanyl (Fentanyl 100 Mcg/2 Ml Sdv) 100 mcg EPIDUR Q3H PRN PRN Reason: Pain Last Admin: 07/06/20 11:14 Dose: 100 mcg Documented by: Fentanyl/Bupivacaine HCl (Bupivacaine/Fentanyl/Ns 100 Ml Bag) 100 ml EPIDUR ASDIRECTED PRN PRN Reason: Pain Last Admin: 07/06/20 11:14 Dose: 100 ml Documented by: Oxytocin/Lactated Ringer's (Pitocin In Lr 10 Units/1,000 Ml) 10 unit in 1,000 mls @ 12 mls/hr IV TITRATE AVE; Protocol Last Titration: 07/06/20 10:45 Dose: 10 munits/min, 60 mls/hr Documented by: Ampicillin Sodium 2 gm/ Sodium (Chloride) 100 mls @ 200 mls/hr IV ONETIME ONE Stop: 07/06/20 07:34 Last Admin: 07/06/20 07:41 Dose: 200 mls/hr Documented by: Ampicillin Sodium 1 gm/ Sodium (Chloride) 100 mls @ 200 mls/hr IV Q4H AVE Last Admin: 07/06/20 14:52 Dose: 200 mls/hr Documented by: Oxytocin/Lactated Ringer's (Pitocin In Lr 10 Units/1,000 Ml) 10 unit in 1,000 mls @ 500 mls/hr IV .CONTINUOUS AVE Lactated Ringer's (Ringers, Lactated) 1,000 mls @ 40 mls/hr IV ASDIRECTED AVE Last Admin: 07/06/20 12:09 Dose: 40 mls/hr Documented by: Nalbuphine HCl (Nalbuphine 10 Mg/1 Ml Vial) 10 mg IVPUSH Q2H PRN PRN Reason: Pain Ondansetron HCl (Ondansetron 4 Mg/2 Ml Sdv) 4 mg IVPUSH Q4H PRN PRN Reason: Nausea/Vomiting Sodium Chloride (Sodium Chloride 0.9% 10 Ml Syringe) 10 ml FLUSH ASDIRECTED PRN PRN Reason: Keep Vein Open - Interaction Infant Disposition, : in Room with Family Infant Interaction: Holding Infant Infant Feeding: Bottle Fed Infant Support Person: - Recovery Exam Fundal Tone: Firm Fundal Level: 2 Fingerbreadths Below Umbilicus Fundal Placement: Midline Lochia Amount: Scant Lochia Color: Rubra/Red Perineum Description: Other (see below) Other Perinuem Description: jose guadalupe urethral with repair Episiotomy/Laceration: Approximated Bladder Status: Voiding Urinary Elimination: Voided - Exam General: Alert, Oriented, Cooperative - Problem List & Annotations (1) 37 weeks gestation of SNOMED Code(s): 21466833 Code(s): Z3A.37 - 37 WEEKS GESTATION OF Status: Acute Current Visit: Yes (2) COVID-19 affecting in third trimester SNOMED Code(s): 497653402, 831530330 Code(s): O98.513 - OTHER VIRAL DISEASES COMPLICATING , THIRD TRIMESTER; U07.1 - COVID-19 Status: Acute Current Visit: Yes (3) GBS (group B Streptococcus carrier), +RV culture, currently SNOMED Code(s): 4231163539321, 479317713, 8147048919055 Code(s): O99.820 - STREPTOCOCCUS B CARRIER STATE COMPLICATING Status: Acute Current Visit: Yes (4) Preeclampsia SNOMED Code(s): 555468049 Code(s): O14.90 - UNSPECIFIED PRE-ECLAMPSIA, UNSPECIFIED TRIMESTER Status: Acute Current Visit: Yes Qualifiers: Trimester: third trimester Qualified Code(s): O14.93 - Unspecified pre- eclampsia, third trimester (5) Vaginal delivery SNOMED Code(s): 064251098 Code(s): O80 - ENCOUNTER FOR FULL-TERM UNCOMPLICATED DELIVERY Status: Acute Current Visit: No - Problem List Review Problem List Initiated/Reviewed/Updated: Yes - My Orders Last 24 Hours: My Active Orders 07/07/20 16:36 Heat Therapy [OM.PC] PRN 07/08/20 08:18 Ready for Discharge [RC] PER UNIT ROUTINE - Assessment Assessment:: PPD#2 - Plan Plan:: * Routine cares * Bottle feeding * Monitor BP's, now more low mild range with some normal values as well. Will have BP check next week * Discharge today
[2020-07-08] MEDS: Ibuprofen 600 MG Tab PO PRN (09:54)
== END 2020-07-08 14:05 | disposition home or self-care (01) | DRG 560 ==
LOC: JD.OB 06:50 → OBSVTOIN 15:35 → JD.OB 15:35
PROVIDERS: ADMIT Obstetrics & Gynecology; ATTEND Obstetrics & Gynecology
PROC: 10E0XZZ Delivery of Products of Conception, External Approach (ICD-10-PCS; principal; 2020-07-06)
PROC: 10907ZC Drainage of Amniotic Fluid, Therapeutic from Products of Conception, Via Natural or Artificial Opening (ICD-10-PCS; 2020-07-06)
PROC: 3E033VJ Introduction of Other Hormone into Peripheral Vein, Percutaneous Approach (ICD-10-PCS; 2020-07-06)
PROC: 0UQMXZZ Repair Vulva, External Approach (ICD-10-PCS; 2020-07-06)
PROC: 3E0R3BZ Introduction of Anesthetic Agent into Spinal Canal, Percutaneous Approach (ICD-10-PCS; 2020-07-06)
PROC: 00HU33Z Insertion of Infusion Device into Spinal Canal, Percutaneous Approach (ICD-10-PCS; 2020-07-06)
DX: O14.04 Mild to moderate pre-eclampsia, complicating childbirth (principal); Z37.0 Single live birth; O98.52 Other viral diseases complicating childbirth; U07.1 COVID-19; O69.1XX0 Labor and delivery complicated by cord around neck, with compression, not applicable or unspecified; O70.1 Second degree perineal laceration during delivery; O99.824 Streptococcus B carrier state complicating childbirth; Z3A.37 37 weeks gestation of pregnancy
CPT/HCPCS: 01967; 36415; 51702; 59025; 59409; 82565; 82570; 84156; 84450; 84460; 85027; 86592; 86850; 86900; 86901; A9270-GY; J0290; J2590; J3010; J3490; J7120; U0002

== ENCOUNTER 2024-04-26 01:21 | Inpatient (IN) | payer BC ==
[~2024-04-26 01:21] MED LIST: Bupivacaine 0.25% 10 ML SDV ONE
[2024-04-26] MEDS ORDERED: Ondansetron 4 MG/2 ML SDV IVPUSH PRN (02:57)
[2024-04-26] MEDS ORDERED: Lidocaine 1% 50 ML MDV INJECT PRN (02:57)
[2024-04-26] MEDS ORDERED: Sodium Chloride 0.9% 10 ML Syringe FLUSH PRN (02:57)
[2024-04-26] MEDS ORDERED: Oxytocin/0.9 % Sodium Chloride 30 UNIT/500 ML BAG IV SCH ×2 (03:00)
[2024-04-26 03:18] LABS: BASOPHILS ABSOLUTE AUTO 0.1 K/mm3 (0.0-0.2); BASOPHILS PERCENT AUTO 0.6 % (0.0-1.0); EOSINOPHILS ABSOLUTE AUTO 0.1 K/mm3 (0.0-0.4); EOSINOPHILS PERCENT AUTO 1.2 % (0.0-6.0); HEMATOCRIT 39.7 % (37.0-47.0); HEMOGLOBIN 13.7 gm/dl (12.0-16.0); IMMATURE GRAN ABSOLUTE AUTO 0.25 K/mm3 (0.00-0.05); IMMATURE GRAN PERCENT AUTO 2.2 % (0.0-0.4); LYMPHOCYTES ABSOLUTE AUTO 1.7 K/mm3 (1.0-4.8); LYMPHOCYTES PERCENT AUTO 15.2 % (24.0-44.0); MEAN CORPUSCULAR HEMOGLOBIN 30.6 pg (28.0-32.0); MEAN CORPUSCULAR HGB CONC 34.5 g/dl (32.0-36.0); MEAN CORPUSCULAR VOLUME 88.8 fl (83.0-99.0); MEAN PLATELET VOLUME 10.8 fl (9.4-12.3); MONOCYTES ABSOLUTE AUTO 0.8 K/mm3 (0.0-0.8); MONOCYTES PERCENT AUTO 7.3 % (0.0-8.0); NEUTROPHILS ABSOLUTE AUTO 8.3 K/mm3 (1.8-7.7); NEUTROPHILS PERCENT AUTO 73.5 % (41.0-71.0); PLATELET COUNT,PLT 251 K/mm3 (150-400); RED BLOOD CELL COUNT 4.47 M/mm3 (4.10-5.30); WHITE BLOOD CELL COUNT,WBC 11.28 K/mm3 (3.9-11.3)
[2024-04-26] MEDS: Lactated Ringers 1,000 ML IV SCH (03:21)
[2024-04-26 03:36] LABS: CREATININE 0.6 mg/dL (0.55-1.02); EST CRCL DRUG DOSING (CG) 116.24 mL/min; URIC ACID 3.7 mg/dL (2.6-6.0)
[2024-04-26] MEDS: Nalbuphine 10 MG/1 ML Vial IVPUSH PRN (04:00)
[2024-04-26] MEDS ORDERED: diphenhydrAMINE 50 MG/ML SDV IVPUSH PRN (04:01)
[2024-04-26] MEDS: fentaNYL 100 MCG/2 ML SDV EPIDUR PRN (04:15)
[2024-04-26] MEDS: Bupivacaine/fentaNYL/NS 100 ML Bag EPIDUR PRN (04:15)
[2024-04-26] MEDS: ePHEDrine 50 MG/ML SDV IVPUSH PRN (04:58)
[2024-04-26 05:17] LABS: CREATININE,URINE RAND 19.6 mg/dL (30.0-125.0)
[2024-04-26 05:18] LABS: PROTEIN,URINE RANDOM < 6.0 mg/dL (0.0-11.8)
[2024-04-26] MEDS: Oxytocin/0.9 % Sodium Chloride 30 UNIT/500 ML BAG IV SCH (08:49)
[2024-04-26] MEDS ORDERED: Hydrocortisone Acetate 25 MG Supp RECTAL PRN (10:03)
[2024-04-26] MEDS ORDERED: Simethicone 80 MG Tab.Chew PO PRN (10:03)
[2024-04-26] MEDS ORDERED: Docusate Sodium 100 MG Cap PO PRN (10:03)
[2024-04-26] MEDS ORDERED: Magnesium Hydroxide 400 MG/5 ML Susp 30 ML Cup PO PRN (10:03)
[2024-04-26] MEDS ORDERED: Acetaminophen 325 MG Tab PO PRN (10:03)
[2024-04-26] MEDS: Ibuprofen 600 MG Tab PO SCH (10:51)
[2024-04-26] MEDS: Benzocaine/Menthol 20%-0.5% Spray 78 GM Cannister TOP PRN (10:52)
[2024-04-26] MEDS: Witch Hazel Medicated Pads 40/Jar TOP PRN (10:52)
[2024-04-27] MEDS: Prenatal Multivitamin with Calcium/Folic Acid/Iron Tab PO SCH (13:30)
== END 2024-04-27 11:45 | disposition home or self-care (01) | DRG 560 ==
LOC: JD.OBCHECK 01:21 → JD.OB 01:27 → JD.OBCHECK 01:27 → JD.OB 02:57 → JD.OBCHECK 02:57 → UNDOADMOB 03:36 → JD.OB 03:36 → INTOOBSV 08:49 → OBSVTOIN 08:49 → JD.OB 08:50 → UNDODISIN 04-27 11:45
PROVIDERS: ADMIT Obstetrics & Gynecology; ATTEND Obstetrics & Gynecology
PROC: 10E0XZZ Delivery of Products of Conception, External Approach (ICD-10-PCS; principal; 2024-04-26)
PROC: 0HQ9XZZ Repair Perineum Skin, External Approach (ICD-10-PCS; 2024-04-26)
PROC: 3E0R3BZ Introduction of Anesthetic Agent into Spinal Canal, Percutaneous Approach (ICD-10-PCS; 2024-04-26)
PROC: 00HU33Z Insertion of Infusion Device into Spinal Canal, Percutaneous Approach (ICD-10-PCS; 2024-04-26)
DX: O42.02 Full-term premature rupture of membranes, onset of labor within 24 hours of rupture (principal); Z37.0 Single live birth; O70.0 First degree perineal laceration during delivery; O69.81X0 Labor and delivery complicated by cord around neck, without compression, not applicable or unspecified; Z3A.38 38 weeks gestation of pregnancy; Z98.890 Other specified postprocedural states
CPT/HCPCS: 01967; 36415; 51702; 59020; 59025; 59409; 82565; 82570; 83615; 84156; 84450; 84460; 84520; 84550; 85025; 86592; 86850; 86900; 86901; A9270-GY; J0665; J2300; J3010; J3490; J7120; J7999